=== PATIENT | female | born 2000 | race Caucasian/White ===

== ENCOUNTER 2022-07-11 14:08 | Emergency (ER) | payer MEDICAID, OTHER ==
[~2022-07-11] VITALS: Ht 165 cm; Wt 130.0 kg
[2022-07-11 14:25] LABS: BILIRUBIN,URINE NEGATIVE (NEGATIVE); COLOR,URINE YELLOW; GLUCOSE, URINE (UA) NEGATIVE (NEGATIVE); KETONES,URINE NEGATIVE (NEGATIVE); LEUKOCYTE ESTERASE ,URINE 1+ (NEGATIVE); NITRITE,URINE NEGATIVE (NEGATIVE); PH,URINE 6.5 (5-9); PROTEIN,URINE TRACE (NEGATIVE)
[2022-07-11 14:26] LABS: BACTERIA,URINE LARGE /HPF; CLARITY,URINE CLOUDY
--- NOTE | 2022-07-11 14:31 | ED GU-Female ---
General Chief Complaint: OB < 20 WEEKS Stated Complaint: BLEEDING, POSTIVE Source: patient History of Present Illness Date Seen by Provider: Jul 11, 2022 Time Seen by Provider: 14:09 Initial Comments 21-year-old female that is G2, P1 with prior delivering in October 2021. She states that her last menstrual period was April 07 and she had negative test in April and May. Last week she had done a test that was faintly positive and then today it was showing definitely positive for on a test. Shortly after she had a positive test she had gone to the bathroom and after urinating when she wiped there was some blood on the tissue. She has been having intermittent abdominal pains in the upper part of her belly and occasionally suprapubic. She states that she has a history of GI problems so she did not think a lot about the pain but then today after the bleeding and positive test she was worried about the occasional pain over her bladder. She was visiting friends here in [place] so she came here to the emergency department within minutes of seeing the blood in her urine. She lives in [place] and has a doctor in [facility]. She denies having pain with urination, nausea, vomiting, fever, chills, vaginal bleeding. She states the last time she had sex was on Wednesday. Timing/Duration: just prior to arrival (less than 20 minutes since she saw blood when she wiped after urinating to when she arrived in the ED) Severity/Quality: moderate (intermittent upper abdominal pain and suprapubic pain for several weeks), cramping, sharp Location: suprapubic (intermittent pain in suprapubic area and Epigastric, RUQ and LUQ) Activities at Onset: none Prior Genitourinary Problems: none Sexual Olimpo History: less than 2 months ago (most recently on Thursday 07/06) Modifying Factors: Worsens With Urinating Associated Symptoms: abdominal pain; No diaphoresis, No dysuria, No fever/chills, No loss of bladder control, No lower back pain, No lumps, No mass, No nausea/vomiting, No nocturia, No polyuria, No swelling, No syncope, No urinary frequency Allergies and Home Medications Allergies Coded Allergies: Penicillins (Verified Allergy, Unknown, Hives, 07/11/22) hives and rash as an Patient Home Medication List Home Medication List Reviewed: Yes Nitrofurantoin Monohyd/M-Cryst (Macrobid 100 mg Capsule) 100 Mg Capsule, 1 TAB PO BID Prescribed by: SMOOTH MAYER on 07/11/22 1443 Review of Systems Review of Systems Constitutional: No chills, No fever EENTM: no symptoms reported Respiratory: no symptoms reported Cardiovascular: no symptoms reported Gastrointestinal: see HPI Genitourinary: see HPI : Yes LMP: Apr 07, 2022 Musculoskeletal: no symptoms reported Skin: no symptoms reported Psychiatric/Neurological: Anxiety Past Weuahih-Elmerr-Pfsoli Hx Patient Social History Tobacco Use?: Yes Tobacco type used: Cigarettes Smoking Status: Light Tobacco Smoker Substance use?: Yes Substance type: Marijuana (THC gummy) Alcohol Use?: No Physical Exam Vital Signs Vital Signs - First Documented 07/11/22 14:10 Temp 36.3 Pulse 97 Resp 16 B/P (MAP) 148/100 (116) Pulse Ox 100 O2 Delivery Room Air Capillary Refill : Height, Weight, BMI Height: '" Weight: lbs. oz. kg; BMI Method: General Appearance: WD/WN, no apparent distress, obese Cardiovascular: normal peripheral pulses, regular rate, rhythm Respiratory: chest non-tender, lungs clear, normal breath sounds Gastrointestinal: normal bowel sounds, soft, no pulsatile mass; No distended, No guarding, No rebound; tenderness (suprapubic and RUQ, LUQ and epigastric) Genital/Rectal: other (defer vaginal speculum exam to avoid irritating the cervix and possibly causing more bleeding. If she has heavier bleeding then co uld perform speculum exam to see more detail of her vaginal bleeding.) Extremities: normal range of motion, non-tender, normal capillary refill Neurologic/Psychiatric: alert, oriented x 3 Skin: normal color, warm/dry Progress/Results/Core Measures Suspected Sepsis SIRS Temperature: Pulse: Respiratory Rate: Laboratory Tests 07/11/22 14:38: White Blood Count 6.3 Blood Pressure / Mean: Laboratory Tests 07/11/22 14:38: Platelet Count 252 Results/Orders Lab Results Laboratory Tests Test 07/11/22 14:14 07/11/22 14:38 Range/Units Urine Color YELLOW Urine Clarity CLOUDY Urine pH 6.5 5-9 Urine Specific [place] >=1.030 1.016-1.022 Urine Protein TRACE H NEGATIVE Urine Glucose (UA) NEGATIVE NEGATIVE Urine Ketones NEGATIVE NEGATIVE Urine Nitrite NEGATIVE NEGATIVE Urine Bilirubin NEGATIVE NEGATIVE Urine Urobilinogen 1.0 < = 1.0 MG/DL Urine Leukocyte Esterase 1+ H NEGATIVE Urine RBC (Auto) 3+ H NEGATIVE Urine RBC NONE /HPF Urine WBC 10-25 H /HPF Urine Squamous Epithelial Cells 5-10 /HPF Urine Crystals NONE /LPF Urine Bacteria LARGE H /HPF Urine Casts NONE /LPF Urine Mucus LARGE H /LPF Urine Culture Indicated YES White Blood Count 6.3 4.3-11.0 10^3/uL Red Blood Count 4.65 3.80-5.11 10^6/uL Hemoglobin 11.2 L 11.5-16.0 g/dL Hematocrit 35 35-52 % Mean Corpuscular Volume 76 L 80-99 fL Mean Corpuscular Hemoglobin 24 L 25-34 pg Mean Corpuscular Hemoglobin Concent 32 32-36 g/dL Red Cell Distribution Width 16.5 H 10.0-14.5 % Platelet Count 252 130-400 10^3/uL Mean Platelet Volume 11.1 9.0-12.2 fL Neutrophils (%) (Auto) 68 42-75 % Lymphocytes (%) (Auto) 23 12-44 % Monocytes (%) (Auto) 8 0-12 % Eosinophils (%) (Auto) 1 0-10 % Basophils (%) (Auto) 1 0-10 % Neutrophils # (Auto) 4.3 1.8-7.8 X 10^3 Lymphocytes # (Auto) 1.5 1.0-4.0 X 10^3 Monocytes # (Auto) 0.5 0.0-1.0 X 10^3 Eosinophils # (Auto) 0.1 0.0-0.3 10^3/uL Basophils # (Auto) 0.0 0.0-0.1 10^3/uL Human Chorionic Gonadotropin, Quant 8805 H <5 MIU/ML My Orders Orders - SMOOTH MAYER MD Urine Bedside (07/11/22 14:14) Ua Culture If Indicated (07/11/22 14:14) Hcg,Quantitative (07/11/22 14:24) Cbc With Automated Diff (07/11/22 14:24) Urine Culture (07/11/22 14:14) Nitrofurantoin Capsule,Macro (Macrobid C (07/11/22 14:54) Vital Signs/I&O 07/11/22 07/11/22 14:10 15:23 Temp 36.3 36.3 Pulse 97 84 Resp 16 16 B/P (MAP) 148/100 (116) 133/88 Pulse Ox 100 100 O2 Delivery Room Air Room Air Capillary Refill : Progress Note #1: Progress Note Potential life-threatening diagnosis of threatened miscarriage, incomplete , ectopic , cholecystitis, colitis, diverticulitis. Obtain urine to check for signs of infection as well as a bedside test here. The bedside test was immediately positive. patient denies any blood with urine, from vagina, or when she wiped after urinating here in the ED. Will obtain blood to check blood count and quantitative hCG level. Counseled patient that we did not have any DEPUTY BRAND INSPECTOR services here as it was a stand-alone emergency department. Advised that I did not have ultrasound here to evaluate for ectopic and did not have filler in coverage this weekend from [place]. Depending on her beta-hCG hormone level she might need to have outpatient ultrasound looking for ectopic . Progress Note #2: Time: 14:41 Progress Note Urinalysis shows some dehydration with elevated specific gravity of greater than 1.030. She also had 1+ leukocyte esterase with 10-25 white blood cells per high-powered field, large bacteria. She had 3+ red blood cells on the dip but microscopic exam showed no red blood cells. This might be from her dehydration and the urine being concentrated. Her blood count showed that her white blood cells were not elevated to indicate an infection. Her hemoglobin was slightly low at 11.2 for anemia and MCV was low at 76 which would go along with some iron deficiency anemia. I updated patient about the findings and the need to treat with an antibiotic for her urine. She reported taking cephalexin or Keflex with her last because she was having recurrent kidney pain and states it never helped her. Will try Macrobid in place of the cephalexin since she is unable to take penicillins. Administer first dose of Macrobid 100 mg p.o. here in the emergency department and sent a prescription for an additional 5 days to [facility] here in [place]. Progress Note #3: Time: 15:17 Progress Note Beta-hCG hormone level came back at 8805. Advised patient of the level and counseled on follow-up and return precautions. Advised if she had heavier bleeding where she saturating more than a pad an hour for 2 hours, fever over 101 Fahrenheit, increasing pain she should be evaluated at a facility that would have DEPUTY BRAND INSPECTOR services such as [facility] or [facility]. She could have repeat test of HCG in 48 to 72 hours to see if it is going up appropriately or not. Advised to drink more water and use Acetaminophen over the counter for pain if needed. Check with filler in this week or sooner if more problems. Take Macrobid 100 mg twice a day for 5 days to treat for UTI during . Departure Impression Primary Impression: Vaginal bleeding affecting early Additional Impressions: Acute cystitis with hematuria UTI (urinary tract infection) in in first trimester Dehydration Disposition: 01 HOME, SELF-CARE Condition: Stable Departure-Patient Inst. Decision time for Depature: 15:17 Referrals: SAMRA DUMAS,LOCAL PHYSICIAN (PCP) Primary Care Physician [facility] Patient Instructions: Blood in Urine (Hematuria), Adult ED, Bleeding in Early ED, Urinary Tract Infection, Adult ED, Dehydration, Adult ED Add. Discharge Instructions: Try to stay well-hydrated and drink plenty of water and electrolyte drinks. You may take acetaminophen 650 mg every 6 hours as needed for pain. Take the 5-day course of antibiotics to help treat for urinary tract infection and blood in the urine. If you have worsening pain, bleeding or you saturate more than a pad an hour for 2 hours or fever over 101 Fahrenheit then you should be reevaluated. Ideally this would be had a facility that has obstetrics and gynecology as well as ultrasound available. Your Beta-HCG hormone level is 8,805 today. If you have continued spotting, bleeding or worsening pain then this level could be rechecked in 48 to 72 hours to see if it is going up appropriately or not. Follow up with provider you plan to see for the this week for recheck. All discharge instructions reviewed with patient and/or family. Voiced understanding. Scripts Nitrofurantoin Monohyd/M-Cryst (Macrobid 100 mg Capsule) 100 Mg Capsule 1 TAB PO BID for UTI for 5 Days, #10 CAP 0 Refills Prov: SMOOTH MAYER MD 07/11/22 SMOOTH MAYER MD Jul 11, 2022 14:31
[2022-07-11] MEDS ORDERED: NITR-65 PO (14:43)
[2022-07-11 14:44] LABS: BASOPHILS % (AUTO) 1 % (0-10); EOSINOPHILS # (AUTO) 0.1 10^3/uL (0.0-0.3); EOSINOPHILS % (AUTO) 1 % (0-10); HEMATOCRIT 35 % (35-52); HEMOGLOBIN 11.2 g/dL (11.5-16.0); LYMPHOCYTES # (AUTO) 1.5 X 10^3 (1.0-4.0); LYMPHOCYTES % (AUTO) 23 % (12-44); MEAN CORPUSCULAR HEMOGLOBIN 24 pg (25-34); MEAN CORPUSCULAR HGB CONC 32 g/dL (32-36); MEAN CORPUSCULAR VOLUME 76 fL (80-99); MEAN PLATELET VOLUME 11.1 fL (9.0-12.2); MONOCYTES # (AUTO) 0.5 X 10^3 (0.0-1.0); MONOCYTES % (AUTO) 8 % (0-12); NEUTROPHILS # (AUTO) 4.3 X 10^3 (1.8-7.8); NEUTROPHILS % (AUTO) 68 % (42-75); PLATELET COUNT 252 10^3/uL (130-400); WHITE BLOOD COUNT 6.3 10^3/uL (4.3-11.0)
[2022-07-11] MEDS ORDERED: NITROFURANTOIN 100 MG (MACROBID) CAPSULE PO STA (14:54)
[2022-07-11 15:23] VITALS: BP 133/88
== END 2022-07-11 15:27 | disposition home or self-care (01) ==
LOC: ER FS 14:12
DX: O23.40 Unspecified infection of urinary tract in pregnancy, unspecified trimester (principal); O99.619 Diseases of the digestive system complicating pregnancy, unspecified trimester; O99.330 Smoking (tobacco) complicating pregnancy, unspecified trimester; N30.01 Acute cystitis with hematuria; E86.0 Dehydration; F17.210 Nicotine dependence, cigarettes, uncomplicated; Z88.0 Allergy status to penicillin; Z28.310 Unvaccinated for COVID-19; Z3A.00 Weeks of gestation of pregnancy not specified
CPT/HCPCS: 36415; 81000; 84702; 84703; 85025; 87088

== ENCOUNTER 2022-07-12 19:13 | Emergency (ER) | payer MEDICAID ==
[~2022-07-12 19:13] MED LIST: NITR-65 PO
--- NOTE | 2022-07-12 19:22 | ED GU-Female ---
General Stated Complaint: VAGINAL BLEEDING History of Present Illness Date Seen by Provider: Jul 12, 2022 Time Seen by Provider: 19:22 Initial Comments 21 yr F who is [id number], with LMP : April 07, 2022 , and will be 13 weeks and 2 days is here with c/o vaginal bleeding and cramping since the past 2 to 3 days. Patient saw her PCP who ordered an ultrasound for tomorrow morning. In the interval, patient started passing large clots and excessive bleeding that is not contained with sanitary napkins, and has come to the ER. Patient is cramping and states that pain level is 10/10. Patient also feels lightheaded. Patient's last was last year and she had a normal vaginal delivery, however she had excessive bleeding and had to be transfused 3 units of blood postdelivery. Denies fever and chills, nausea and vomiting, chest pain, shortness of breath. Allergies and Home Medications Allergies Coded Allergies: Penicillins (Verified Allergy, Unknown, Hives, 07/11/22) hives and rash as an Patient Home Medication List Home Medication List Reviewed: Yes Nitrofurantoin Monohyd/M-Cryst (Macrobid 100 mg Capsule) 100 Mg Capsule, 1 TAB PO BID Prescribed by: SMOOTH MAYER on 07/11/22 1443 Review of Systems Review of Systems Constitutional: no symptoms reported EENTM: no symptoms reported Respiratory: no symptoms reported Cardiovascular: no symptoms reported Gastrointestinal: no symptoms reported Genitourinary: other (Bleeding) : Yes LMP: Apr 07, 2022 Musculoskeletal: no symptoms reported Skin: no symptoms reported Psychiatric/Neurological: No Symptoms Reported Endocrine: No Symptoms Reported Past Gzdsezi-Gviszu-Kwnoav Hx Past Medical History Surgery/Hospitalization HX: DEPRESSION Physical Exam Vital Signs Vital Signs - First Documented 07/12/22 19:19 Pulse 128 Resp 20 B/P (MAP) 138/98 (111) Pulse Ox 99 O2 Delivery Room Air Capillary Refill : Height, Weight, BMI Height: '" Weight: lbs. oz. kg; 47.00 BMI Method: General Appearance: WD/WN, moderate distress HEENT: PERRL/EOMI Neck: full range of motion Cardiovascular: normal peripheral pulses, regular rate, rhythm Respiratory: chest non-tender, lungs clear, normal breath sounds, no respiratory distress Gastrointestinal: normal bowel sounds, soft Genital/Rectal: other (Vaginal exam shows open cervical os with excessive bleeding and very large clots, with tissue and membranes as well.) Pelvic: normal external exam, vaginal bleeding, other (See genital exam) Back: normal inspection, no CVA tenderness Extremities: normal range of motion Neurologic/Psychiatric: alert, normal mood/affect, oriented x 3 Skin: normal color Progress/Results/Core Measures Suspected Sepsis SIRS Temperature: Pulse: Respiratory Rate: Laboratory Tests 07/12/22 19:38: White Blood Count 9.1 Blood Pressure / Mean: Laboratory Tests 07/12/22 19:38: Creatinine 0.75, Platelet Count 251, Total Bilirubin 0.3 Results/Orders Lab Results Laboratory Tests Test 07/12/22 19:38 Range/Units White Blood Count 9.1 4.3-11.0 10^3/uL Red Blood Count 4.43 3.80-5.11 10^6/uL Hemoglobin 10.8 L 11.5-16.0 g/dL Hematocrit 33 L 35-52 % Mean Corpuscular Volume 75 L 80-99 fL Mean Corpuscular Hemoglobin 24 L 25-34 pg Mean Corpuscular Hemoglobin Concent 33 32-36 g/dL Red Cell Distribution Width 16.0 H 10.0-14.5 % Platelet Count 251 130-400 10^3/uL Mean Platelet Volume 11.2 9.0-12.2 fL Immature Granulocyte % (Auto) 0 % Neutrophils (%) (Auto) 70 42-75 % Lymphocytes (%) (Auto) 22 12-44 % Monocytes (%) (Auto) 6 0-12 % Eosinophils (%) (Auto) 1 0-10 % Basophils (%) (Auto) 1 0-10 % Neutrophils # (Auto) 6.4 1.8-7.8 10^3/uL Lymphocytes # (Auto) 2.0 1.0-4.0 10^3/uL Monocytes # (Auto) 0.6 0.0-1.0 10^3/uL Eosinophils # (Auto) 0.1 0.0-0.3 10^3/uL Basophils # (Auto) 0.1 0.0-0.1 10^3/uL Immature Granulocyte # (Auto) 0.0 0.0-0.1 10^3/uL Sodium Level 138 135-145 MMOL/L Potassium Level 4.1 3.6-5.0 MMOL/L Chloride Level 104 98-107 MMOL/L Carbon Dioxide Level 22 21-32 MMOL/L Anion Gap 12 5-14 MMOL/L Blood Urea Nitrogen 8 7-18 MG/DL Creatinine 0.75 0.60-1.30 MG/DL Estimat Glomerular Filtration Rate 118 BUN/Creatinine Ratio 11 Glucose Level 94 70-105 MG/DL Calcium Level 9.3 8.5-10.1 MG/DL Corrected Calcium 9.2 8.5-10.1 MG/DL Magnesium Level 1.7 1.6-2.4 MG/DL Total Bilirubin 0.3 0.1-1.0 MG/DL Aspartate Amino Transf (AST/SGOT) 13 5-34 U/L Alanine Aminotransferase (ALT/SGPT) 11 0-55 U/L Alkaline Phosphatase 68 40-136 U/L Total Protein 6.9 6.4-8.2 GM/DL Albumin 4.1 3.2-4.5 GM/DL Serum Test, Qualitative POSITIVE NEGATIVE My Orders Orders - NANCI GARDUNO MD Cbc With Automated Diff (07/12/22 19:22) Comprehensive Metabolic Panel (07/12/22 19:22) Hcg,Qualitative Serum (07/12/22 19:22) Magnesium (07/12/22 19:22) Ua Culture If Indicated (07/12/22 19:22) Ed Iv/Invasive Line Start (07/12/22 19:40) Ns Iv 1000 Ml (Sodium Chloride 0.9%) (07/12/22 19:45) Ns Iv 1000 Ml (Sodium Chloride 0.9%) (07/12/22 19:42) Fentanyl Inj (Sublimaze Injection) (07/12/22 20:00) Vital Signs/I&O 07/12/22 19:19 Pulse 128 Resp 20 B/P (MAP) 138/98 (111) Pulse Ox 99 O2 Delivery Room Air Capillary Refill : Progress Note : Progress Note 1. INCOMPLETE , ACTIVE: -No ultrasound available in [place] ER today - CBC/ CMP: Hemoglobin is 10.8 -Vitals stable -NS IVF bolus stat in ER -Fentanyl 50 mcg IV stat for pain in the ER -Discussed with OB consult at [facility] where patient wants to go, and accepted for admission -Patient agrees with plan Departure Impression Primary Impression: Incomplete with delayed or excessive hemorrhage Disposition: 02 XFER SHT-TRM HOSP Condition: Stable Transfer Transfer Reason: Exceeds level of care Time Spoke to Accepting Phy: 20:05 Transfer Progress Notes Accepted for admission by Dr. Tyron Tejada, patient will be transferred to OB at [facility] Transfer Facility: [facility] Method of Transfer: EMS Departure-Patient Inst. Referrals: NO,LOCAL PHYSICIAN (PCP/Family) Primary Care Physician NANCI GARDUNO MD Jul 12, 2022 19:22
[2022-07-12 19:41] LABS: BASOPHILS # (AUTO) 0.1 10^3/uL (0.0-0.1); BASOPHILS % (AUTO) 1 % (0-10); EOSINOPHILS # (AUTO) 0.1 10^3/uL (0.0-0.3); EOSINOPHILS % (AUTO) 1 % (0-10); HEMATOCRIT 33 % (35-52); HEMOGLOBIN 10.8 g/dL (11.5-16.0); LYMPHOCYTES % (AUTO) 22 % (12-44); MEAN CORPUSCULAR HEMOGLOBIN 24 pg (25-34); MEAN CORPUSCULAR HGB CONC 33 g/dL (32-36); MEAN CORPUSCULAR VOLUME 75 fL (80-99); MEAN PLATELET VOLUME 11.2 fL (9.0-12.2); MONOCYTES # (AUTO) 0.6 10^3/uL (0.0-1.0); MONOCYTES % (AUTO) 6 % (0-12); NEUTROPHILS # (AUTO) 6.4 10^3/uL (1.8-7.8); NEUTROPHILS % (AUTO) 70 % (42-75); PLATELET COUNT 251 10^3/uL (130-400); WHITE BLOOD COUNT 9.1 10^3/uL (4.3-11.0)
[2022-07-12] MEDS ORDERED: NS IV 1000 ML 1,000 ML ONE (19:42)
[2022-07-12] MEDS ORDERED: NS IV 1000 ML 1,000 ML IV SCH (19:45)
[2022-07-12] MEDS ORDERED: fentaNYL INJ 100 MCG/2 ML AMP IVP ONE (20:00)
[2022-07-12 20:01] LABS: ALBUMIN 4.1 GM/DL (3.2-4.5); BILIRUBIN,TOTAL 0.3 MG/DL (0.1-1.0); CALCIUM 9.3 MG/DL (8.5-10.1); CREATININE SERUM 0.75 MG/DL (0.60-1.30); MAGNESIUM 1.7 MG/DL (1.6-2.4); POTASSIUM 4.1 MMOL/L (3.6-5.0); TOTAL PROTEIN 6.9 GM/DL (6.4-8.2)
[2022-07-12 20:20] VITALS: BP 120/53
== END 2022-07-12 20:35 | disposition short-term general hospital (02) ==
LOC: EDUNIT# 19:13 → ER FS 19:18
DX: O03.1 Delayed or excessive hemorrhage following incomplete spontaneous abortion (principal); Z28.310 Unvaccinated for COVID-19; Z3A.13 13 weeks gestation of pregnancy
CPT/HCPCS: 36415; 80053; 83735; 84703; 85025; 99282